=== PATIENT | female | born 1980 | race Two or more races ===

== ENCOUNTER 2017-02-11 10:15 | Emergency (ER) | payer OTHER ==
[~2017-02-11] VITALS: Ht 149.9 cm; Wt 52.2 kg
[2017-02-11 10:46] LABS: Basophils # (auto) 0.1 uL; Basophils % (auto) 0.3 % (0.0-2.0); CONDITION Y; DEFINITIVE SEE PRINTOUT; Eosinophils # (auto) 0 uL; Hematocrit 33.1 % (36.0-46.0); Hemoglobin 10.9 g/dL (12.2-16.2); Lymphocytes # (auto) 1.6 uL; Lymphocytes % (auto) 8.7 % (10.0-50.0); Mean Corpuscular Hemoglobin 25.8 pg (28.0-32.0); Mean Corpuscular Volume 78.3 fL (80.0-100.0); Mean Platelet Volume 7.8 fL (7.4-10.4); Monocytes # (auto) 0.5 uL; Neutrophils # (auto) 15.8 uL; Platelet Count (auto) 546 10^3/uL (140-450); Red Cell Distribution Width 17.3 % (11.6-16.0)
[2017-02-11 11:06] LABS: Albumin 3.7 g/dL (3.4-5.0); BUN/Creatinine Ratio 17.2; Bilirubin, Total 0.4 mg/dL (0.2-1.0); Calcium 9.1 mg/dL (8.5-10.1); Total Protein 8.2 g/dL (6.4-8.2)
[2017-02-11 11:36] LABS: Urine Bilirubin Negative (Negative); Urine Blood TRACE /uL (Negative); Urine Color Yellow (Yellow); Urine Glucose Normal (Normal); Urine Ketone 1+ (Negative); Urine Mucus FEW (None Seen); Urine Nitrite Negative (Negative); Urine RBC 9 /hpf (0 - 4); Urine Squamous Epithelial Cell FEW /hpf (<5); Urine Urobilinogen Normal (Negative); Urine pH 6.5 (5.0-8.0)
[2017-02-11] MEDS ORDERED: SODIUM CHLORIDE 0.9% 500 ML IVB ONE (12:05)
[2017-02-11] MEDS ORDERED: ONDANSETRON HCL 4 MG/2 ML VIAL IV ONE (12:15)
[2017-02-11] MEDS ORDERED: cefTRIAXone 1GM/50ML D5W 50 ML IV ONE (12:15)
[2017-02-11] MEDS ORDERED: HYDROmorphone HCL 2 MG/ML VL IV ONE (12:15)
[2017-02-11] MEDS ORDERED: IOHEXOL 300 MG/ML 100ML BOTTLE IJ ONE (12:18)
[2017-02-11 12:54] LABS: Amylase 37 U/L (25-115)
[2017-02-11 13:22] VITALS: BP 123/62
== END 2017-02-11 17:00 | disposition home or self-care (01) ==
LOC: EDBD 10:15 → ER 10:15
DX: N39.0 Urinary tract infection, site not specified (principal); C80.1 Malignant (primary) neoplasm, unspecified; C79.82 Secondary malignant neoplasm of genital organs; F17.210 Nicotine dependence, cigarettes, uncomplicated
CPT/HCPCS: 36415; 74177; 80053; 81001; 81025; 82150; 83605; 83690; 85025; 87040; 94761; 96365; 96375; 99285; J0696; J1170; J2405; J7030; Q9967

== ENCOUNTER 2018-01-10 13:56 | Emergency (ER) | payer OTHER ==
[~2018-01-10] VITALS: Ht 149.9 cm; Wt 61.2 kg
[2018-01-10 14:03] VITALS: BP 114/51
[2018-01-10] MEDS ORDERED: methylPREDNISolone SOD SUCC 125 MG/2 ML VL IM ONE (16:15)
[2018-01-10] MEDS ORDERED: diphenhdrAMINE HCL 25 MG CAP PO ONE (16:15)
== END 2018-01-10 16:35 | disposition home or self-care (01) ==
LOC: ER 13:59
DX: R21 Rash and other nonspecific skin eruption (principal); F17.210 Nicotine dependence, cigarettes, uncomplicated
CPT/HCPCS: 96372; 99283; J2930

== ENCOUNTER 2018-02-17 05:50 | Emergency (ER) | payer OTHER ==
[~2018-02-17] VITALS: Ht 149.9 cm; Wt 65.8 kg
[2018-02-17 07:20] VITALS: BP 110/59
== END 2018-02-17 09:08 | disposition home or self-care (01) ==
LOC: EDBD 05:50 → ER 05:53
DX: S02.2XXA Fracture of nasal bones, initial encounter for closed fracture (principal); S09.8XXA Other specified injuries of head, initial encounter; F17.210 Nicotine dependence, cigarettes, uncomplicated; W01.0XXA Fall on same level from slipping, tripping and stumbling without subsequent striking against object, initial encounter; Y93.89 Activity, other specified; Y92.89 Other specified places as the place of occurrence of the external cause; Y99.8 Other external cause status
CPT/HCPCS: 70450; 70486; 81025

== ENCOUNTER 2018-03-21 18:38 | Emergency (ER) | payer OTHER ==
[~2018-03-21] VITALS: Ht 149.9 cm; Wt 61.2 kg
[2018-03-21 19:00] VITALS: BP 131/85
== END 2018-03-21 20:39 | disposition home or self-care (01) ==
LOC: ER 18:38
DX: I99.8 Other disorder of circulatory system (principal); F17.210 Nicotine dependence, cigarettes, uncomplicated